=== PATIENT | male | born 1990 | race Caucasian/White ===

== ENCOUNTER → 2023-04-01 12:03 | Outpatient (CLI) | payer OTHER, SELFPAY ==
--- NOTE | 2023-04-01 12:12 | XR_ITS ---
FINAL REPORT CLINICAL HISTORY: LOW BACK PAIN FINDINGS: LUMBAR SPINE 5 views were obtained. There is no acute fracture. There is no malalignment. There is mild narrowing at the L5-S1 disc space. There is no soft tissue abnormality. IMPRESSION: Mild degenerative disc disease at L5-S1 with no acute bony abnormality. Reviewed, Interpreted and Dictated by Gutierrez Silverman MD Transcribed by Kathleen Buckley Authenticated and [facility]
== END ==
PROVIDERS: PCP Family Medicine; Visit Provider Family Medicine
DX: M54.50 Low back pain, unspecified (principal)
CPT/HCPCS: 72110

== ENCOUNTER → 2023-04-14 15:02 | Outpatient (CLI) | payer OTHER, SELFPAY | PROVIDERS: PCP Family Medicine; Visit Provider Family Medicine | DX: R01.2 Other cardiac sounds (principal) | CPT/HCPCS: 93306 ==

== ENCOUNTER 2023-10-20 10:17 | Emergency (ER) | payer OTHER, SELFPAY ==
[2023-10-20 10:18] VITALS: BP 132/97; PULSE 81; RESP 16; TEMP 36.7; O2SAT 96; BMI 36.3
--- NOTE | 2023-10-20 10:30 | PC.NURSE ---
MD at bedside with silver nitrate sticks
--- NOTE | 2023-10-20 10:38 | HMH.EDGENADL ---
Discharge Plan Disposition Patient Disposition: Home, Self-Care Referrals Follow up/Referrals: Allen Saul MD [Primary Care Provider] - See instructions Activity Restrictions/Add. Instructions Additional Instructions/Restrictions: There is evidence of mucosal friability in the right anterior septum which was cauterized utilizing silver nitrate. If there is any type of rebleeding please administer Afrin and hold direct pressure for 10 to 15 minutes as discussed. Return with any worsening of the bleeding. Clinical Impressions Clinical Impression: Acute anterior epistaxis Instructions Patient Instructions: DI for Nosebleed Discharge ED Provider: Lebron Monreal General Adult HPI General Chief complaint: Epistaxis Stated complaint: nose bleed Time Seen by Provider: 10/20/23 10:24 Mode of Arrival: Ambulatory Source of Information: Patient Limitations: No Limitations Description of Symptoms (Recalled from ER Triage Doc. by RN): pt to the ED with complaints of a nose bleed for the last 4 days. pt stated he has had one every morning and they have lasted about 45 minutes to an hour. pt denies any pain or injury. History of Present Illness HPI narrative: Is a 32-year-old male present today with right anterior epistaxis that is been intermittent for the last several days. States that he does occasionally pick his nose which may be the traumatic source. Also he uses CPAP with humidifier at night and it seems as if this were also causing worsening of his symptoms each night. Denies any bleeding or bruising elsewhere is not on any blood thinners including anticoagulation or antiplatelet agents. Related Data Allergies Allergy/AdvReac Type Severity Reaction Status Date / Time No Known Allergies Allergy Verified 10/20/23 10:34 [facility] Disclaimer: The information contained in this section may have been updated after the patient was seen, as this information can be updated by other users. Social History Smoking Status: Never smoker alcohol intake: never current occupational status: other Travel in the last 8 weeks: None ROS Obtained: Yes All systems reviewed & no additional complaints except as documented Physical Exam General General appearance: alert ENT ENT exam: Present other (Right anterior septum is friable and erythematous but no obvious active bleeding) Respiratory Respiratory exam: Present normal lung sounds bilaterally Cardiovascular Cardiovascular exam: Present regular rate; Absent tachycardia Neurological Exam Neurological exam: Present alert Medical Decision Making Suresh Inquiry Pt receiving controlled substance: No Vital Signs: 10/20/23 10:18 Temperature 98.1 F Temperature Source Oral Pulse Rate [Left Radial] 81 Respiratory Rate 16 Blood Pressure [Right Arm] 132/97 H Blood Pressure Mean [Right Arm] 108 Blood Pressure Source [Right Arm] Automatic Cuff Blood Pressure Position [Right Arm] Sitting 02 Sat by Pulse Oximetry 96 Oxygen Delivery Method Room Air Orders (Tests/Meds): ED MEDICATIONS Generic Name Dose Route Start Last Admin Trade Name Brett PRN Reason Stop Dose Admin Silver Nitrate 2 each 10/20/23 10:34 Silver Nitrate Applicator TP 10/20/23 10:35 ONCE ONE Medical Decision Narrative: 32-year-old male presented with right anterior epistaxis which has since resolved. I discussed with him multiple options including a watchful waiting approach home Afrin and compression versus more prophylactic interventions such as silver nitrate cautery or placing a nasal packing device. We opted for silver nitrate given the fact that had friable mucosa and had recently been bleeding. This was done successfully return precautions discussed and no further emergent intervention was needed. Procedures Epistaxis Control Time Out Performed: No Nostril: right Direct Inspection: yes and anterior source identified Cautery Used: silver nitrate Patient Tolerated P
[2023-10-20 10:46] VITALS: BP 135/81; PULSE 79; RESP 16; TEMP 36.7; O2SAT 97
== END 2023-10-20 10:50 | disposition home or self-care (01) ==
LOC: ER 10:47
PROVIDERS: Emergency Provider Student in an Organized Health Care Education/Training Program; PCP Family Medicine
DX: R04.0 Epistaxis (principal)
CPT/HCPCS: 30901; 99283

== ENCOUNTER 2024-01-05 11:15 | Outpatient (CLI) | payer BC, SELFPAY ==
[2024-01-05 11:35] VITALS: BP 116/64; PULSE 80; RESP 16; TEMP 37.2; O2SAT 96
[2024-01-05] MEDS: SODIUM CHLORIDE 0.9% 10ML FLUSH SYRINGE 10 ML IV (11:35)
[2024-01-05] MEDS: 0.9 % SODIUM CHLORIDE 1000ML 1,000 ML 999 ML IV ×2 (11:35→12:35)
[2024-01-05 12:35] VITALS: BP 128/70; PULSE 81; RESP 16
[2024-01-05 13:35] VITALS: BP 135/74; PULSE 94; RESP 17
== END 2024-01-05 13:35 | disposition home or self-care (01) ==
LOC: INF 11:17
PROVIDERS: PCP Family Medicine; Visit Provider Family Medicine
DX: J10.1 Influenza due to other identified influenza virus with other respiratory manifestations (principal); E86.0 Dehydration
CPT/HCPCS: 96360; 96361